=== PATIENT | male | born 1990 | race Caucasian/White ===

== ENCOUNTER 2017-05-11 12:30 | Emergency (ER) | payer MEDICAID ==
[~2017-05-11] VITALS: Ht 188 cm; Wt 102.1 kg
[2017-05-11] MEDS ORDERED: BACLOFEN10 MG PO (13:02)
[2017-05-11] MEDS ORDERED: METHYLPREDNISOLO4 M1 PO (13:02)
[2017-05-11] MEDS ORDERED: KETOROLAC TROME10 MG PO (13:02)
== END 2017-05-11 13:08 | disposition home or self-care (01) ==
LOC: ED 12:30
DX: M54.5 Low back pain (principal); M62.830 Muscle spasm of back
CPT/HCPCS: 99283

== ENCOUNTER 2018-04-25 02:38 | Emergency (ER) | payer OTHER ==
[~2018-04-25] VITALS: Ht 188 cm; Wt 102.1 kg
[~2018-04-25 02:38] MED LIST: BACLOFEN10 MG PO; KETOROLAC TROME10 MG PO; METHYLPREDNISOLO4 M1 PO
[2018-04-25] MEDS ORDERED: MEDROL4 M1 PO (03:05)
[2018-04-25] MEDS ORDERED: BACLOFEN10 MG PO (03:05)
[2018-04-25] MEDS ORDERED: DICLOFENAC SODI75 MG PO (03:05)
== END 2018-04-25 03:41 | disposition home or self-care (01) ==
LOC: ED 02:38
DX: M54.5 Low back pain (principal)
CPT/HCPCS: 96372; 99283-25; J1885

== ENCOUNTER 2019-04-15 22:52 | Emergency (ER) | payer OTHER ==
[~2019-04-15] VITALS: Ht 190.5 cm; Wt 108.9 kg
[~2019-04-15 22:52] MED LIST changes: +DICLOFENAC SODI75 MG PO; +MEDROL4 M1 PO
== END 2019-04-15 23:58 | disposition home or self-care (01) ==
LOC: ED 22:52
DX: S61.211A Laceration without foreign body of left index finger without damage to nail, initial encounter (principal); W26.0XXA Contact with knife, initial encounter
CPT/HCPCS: 12001; 90471; 90715; 99282-25

== ENCOUNTER 2019-04-23 23:33 | Emergency (ER) | payer OTHER ==
[~2019-04-23] VITALS: Ht 190.5 cm; Wt 108.9 kg
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
[2019-04-24] MEDS ORDERED: BACTRIM DS TAB1 EACH PO (01:33)
[2019-04-24] MEDS ORDERED: CEPHALEXIN500 MG PO (01:33)
== END 2019-04-24 01:54 | disposition home or self-care (01) ==
LOC: ED 23:33
DX: S61.231A Puncture wound without foreign body of left index finger without damage to nail, initial encounter (principal); L08.9 Local infection of the skin and subcutaneous tissue, unspecified; X58.XXXA Exposure to other specified factors, initial encounter
CPT/HCPCS: 87070; 87077; 87186; 99283; A9270